=== PATIENT | female | born 1955 | race Hispanic/Latino ===

== ENCOUNTER → 2019-06-25 | Outpatient (CLI) | payer OTHER ==
[~2019-06-25] MED LIST: METFORMIN HCL500 MG PO
--- NOTE | 2019-06-25 11:12 | Diagnostic Imaging Report ---
TECHNIQUE: Magnetic resonance imaging of the left ANKLE was performed WITHOUT injected contrast. COMPARISON: None available. HISTORY: ankle pain FINDINGS: LIGAMENTS: Medial Complex: Intact Lateral Complex: Intact TENDONS: Medial: Posterior tibial and flexor tendons intact. Lateral: Peroneal longus intact. Peroneal brevis tendinopathy with partial splitting. Anterior: Anterior tibial and extensor tendons intact. Achilles: Mild narrowing distal Achilles tendinopathy with peritendinous edema. BONES: No focal or infiltrative bone marrow replacing abnormality. No acute fracture or osteonecrosis. JOINTS: Cartilage: Osteochondral lesion of the medial talar dome with overlying cartilage irregularity. No unstable defect. Other: Fluid within the joints is within physiologic limits. SOFT TISSUES: Plantar fascial thickening with perifascial edema. IMPRESSION: Plantar fasciitis without tear. Mild distal Achilles tendinosis with peritendinitis edema. Peroneal brevis tendinopathy with partial splitting. Signed by: Dr. Fidencio Farias M.D. on 06/25/2019 11:07 AM
== END ==
LOC: MRI 08:14
PROVIDERS: ATTEND Podiatrist Foot & Ankle Surgery
DX: S86.012A Strain of left Achilles tendon, initial encounter (principal)